=== PATIENT | female | born 1960 | race Caucasian/White ===

== ENCOUNTER 2018-04-20 15:18 | Inpatient (IN) ==
[2018-04-20] MEDS ORDERED: ONDANSETRON 4 MG/2 ML VIAL IV PRN (17:49)
[2018-04-20] MEDS ORDERED: ALBUTEROL/IPRATROPIUM 3 ML NEB RESP TX PRN (17:49)
[2018-04-20] MEDS ORDERED: ACETAMINOPHEN 325 MG TABLET PO PRN (17:49)
[2018-04-20] MEDS ORDERED: ALBUTEROL 2.5 MG/3 ML NEB RESP TX PRN (17:49)
[2018-04-20] MEDS ORDERED: methylPREDNISolone SOD SUC 125 MG/2 ML VIAL IV ONE (18:00)
[2018-04-20] MEDS ORDERED: LEVALBUTEROL 0.31 MG/3 ML NEB RESP TX ONE (18:16)
[2018-04-20] MEDS ORDERED: LORazepam 2 MG/1 ML VIAL IV ONE (18:26)
[2018-04-20] MEDS ORDERED: METOPROLOL TARTRATE 5 MG/5 ML VIAL IV ONE ×2 (18:26→18:30)
[2018-04-20] MEDS ORDERED: MORPHINE 4 MG/1 ML VIAL IV ONE (18:28)
[2018-04-20 18:29] LABS: Hematocrit 44.7 VOL% (35.7-47.0); Hemoglobin 14.5 GM/DL (12.0-16.0); Immature Granulocytes % 1.3 %; Immature Granulocytes Absolute 0.15 #; Lymphocytes # 0.8 10*3/uL (1.4-4.0); Lymphocytes % 6.4 % (21.3-54.2); Mean Corpuscular HGB Conc 32.4 GM/DL (32-36); Mean Corpuscular Hemoglobin 32 PG (27-34); Mean Corpuscular Volume 99.6 FL (87-102); Mean Platelet Volume 10.5 FL (9.6-12.0); Monocytes # 0.1 10*3/uL (0.11-0.8); Monocytes % 1.2 % (1.7-12.7); Neutrophils # 10.9 10*3/uL (1.4-7.4); Neutrophils % 91.1 % (38.7-73.9); Platelet Count 337 T/CUMM (130-400); Red Blood Count 4.49 MC/CUMM (3.8-5.5); Red Cell Distribution Width 13.2 % (9.3-17.3); White Blood Count 11.9 T/CUMM (4-12)
[2018-04-20 18:35] LABS: INR 0.9; PT Patient Result 9.9 SECS
[2018-04-20 18:35] LABS: ABG Base Excess -1.5 MMOL/L (-2.5-2.5); ABG HCO3 23.1 MMOL/L (20-26); ABG Oxygen Saturation 96.6 % (95-100); ABG PCO2 33.9 MM HG (35-48); ABG PH 7.422 (7.35-7.45); ABG PO2 85.6 MM HG (80-95); ABG TCO2 18.8 MMOL/L (23-27)
[2018-04-20] MEDS ORDERED: LORazepam 2 MG/1 ML VIAL IM PRN (18:48)
[2018-04-20] MEDS: SODIUM CHLORIDE 0.45% 1,000 ML IV SCH (18:50)
[2018-04-20 19:13] LABS: Alanine Aminotransferase 62 U/L (13-56); Albumin 4.4 G/DL (3.4-5.0); Alkaline Phosphatase 75 U/L (45-117); Aspartate Amino Transferase 45 U/L (0-37); Bilirubin,Total < 0.39 MG/DL (0.2-1.0); Blood Urea Nitrogen 19 MG/DL (7-18); Calcium 9.5 MG/DL (8.5-10.1); Glucose 131 MG/DL (74-106); Osmolality,Calculated 280.5 MOS/KG (273-304); Potassium 4.5 MMOL/L (3.5-5.1); Sodium 139 MMOL/L (136-145); Thyroid Stimulating Hormone 0.186 uIU/ml (0.358-3.74); Total Protein 8.8 G/DL (6.4-8.3)
[2018-04-20] MEDS ORDERED: LEVALBUTEROL 0.31 MG/3 ML NEB RESP TX PRN (19:45)
[2018-04-20 21:12] LABS: Apearance,Urine CLEAR (Clear); Bacteria,Urine Occasional /HPF (Few); Bilirubin,Urine Negative (Negative); Blood, Urine Negative (Negative); Glucose,Urine (UA) Negative (Negative); Ketones,Urine Negative (Negative); Mucus,Urine Occasional /LPF (Occasional); Nitrite,Urine Negative (Negative); Protein,Urine Negative; RBC,Urine <1 /HPF (0-4); Squamous Epithelial Cell,Urine Occasional /HPF (0-10); Urine Color Yellow (Yellow); Urine Specific Gravity 1.014 (1.001-1.035); Urine Urobilinogen < 2.0 EU/DL (0.2-1.0); WBC,Urine <1 /HPF (0-6)
[2018-04-20] MEDS: MORPHINE 4 MG/1 ML VIAL IV PRN (21:12)
[2018-04-20] MEDS: ENOXAPARIN 40 MG/0.4 ML SYRINGE SUBCUT SCH (21:12)
[2018-04-20] MEDS: TOPIRAMATE 25 MG TABLET PO SCH (21:12)
[2018-04-20] MEDS: MONTELUKAST 10 MG TABLET PO SCH (21:12)
[2018-04-20] MEDS: MEROPENEM 500 MG in SODIUM CHLORIDE 0.9% 100 ML IV SCH (21:48)
[2018-04-20] MEDS: LORazepam 2 MG/1 ML VIAL IV PRN (23:15)
[2018-04-21 00:29] LABS: Lymphocytes 6 % (20-55); Segmented Neutrophils 91 % (50-85)
[2018-04-21 00:30] LABS: Platelet Estimate Adequate; Total Cells Counted 100
[2018-04-21] MEDS: methylPREDNISolone SOD SUC 40 MG/1 ML VIAL IV SCH ×3 (01:44→17:59)
[2018-04-21] MEDS ORDERED: methylPREDNISolone SOD SUC 40 MG/1 ML VIAL IV SCH (02:00)
[2018-04-21 05:32] LABS: Basophils % 0.2 % (0.0-0.8); Hematocrit 42.9 VOL% (35.7-47.0); Hemoglobin 13.6 GM/DL (12.0-16.0); Immature Granulocytes % 0.7 %; Immature Granulocytes Absolute 0.08 #; Lymphocytes # 1.1 10*3/uL (1.4-4.0); Mean Corpuscular HGB Conc 31.7 GM/DL (32-36); Mean Corpuscular Hemoglobin 32 PG (27-34); Mean Corpuscular Volume 100.5 FL (87-102); Mean Platelet Volume 12.2 FL (9.6-12.0); Monocytes # 0.3 10*3/uL (0.11-0.8); Monocytes % 2.5 % (1.7-12.7); Neutrophils # 10.4 10*3/uL (1.4-7.4); Neutrophils % 87.6 % (38.7-73.9); Red Blood Count 4.27 MC/CUMM (3.8-5.5); Red Cell Distribution Width 13.3 % (9.3-17.3); White Blood Count 11.9 T/CUMM (4-12)
[2018-04-21 05:33] LABS: Platelet Count 119 T/CUMM (130-400)
[2018-04-21] MEDS ORDERED: LEVOTHYROXINE 200 MCG TABLET PO SCH (06:30)
[2018-04-21 06:33] LABS: Calcium 8.7 MG/DL (8.5-10.1); Osmolality,Calculated 268.2 MOS/KG (273-304); Potassium 4.8 MMOL/L (3.5-5.1); VLDL CHOLESTEROL 18.6 MG/DL
[2018-04-21 06:34] LABS: Risk Ratio 2.04
[2018-04-21 06:35] LABS: Lymphocytes 6 % (20-55); Segmented Neutrophils 94 % (50-85)
[2018-04-21 06:36] LABS: Total Cells Counted 100
[2018-04-21 06:37] LABS: Platelet Estimate Adequate
[2018-04-21] MEDS: TOPIRAMATE 25 MG TABLET PO SCH ×2 (08:06→21:08)
[2018-04-21] MEDS: MEROPENEM 500 MG in SODIUM CHLORIDE 0.9% 100 ML IV SCH ×2 (08:06→21:11)
[2018-04-21] MEDS: ASPIRIN EC 325 MG TABLET PO SCH (08:06)
[2018-04-21] MEDS: PANTOPRAZOLE 40 MG TABLET PO SCH (08:06)
[2018-04-21] MEDS: SODIUM CHLORIDE 0.45% 1,000 ML IV SCH (08:07)
[2018-04-21] MEDS: MORPHINE 4 MG/1 ML VIAL IV PRN ×4 (08:40→21:28)
[2018-04-21] MEDS ORDERED: LISINOPRIL/HCTZ 20-12.5 MG TABLET PO SCH (09:00)
[2018-04-21] MEDS ORDERED: VERAPAMIL 120 MG TABLET PO SCH (09:00)
[2018-04-21] MEDS ORDERED: Varenicline Tartrate [Chantix Starter Month Pack] PO SCH (09:50)
[2018-04-21] MEDS ORDERED: CYCLOBENZAPRINE 10 MG TABLET PO PRN (09:50)
[2018-04-21 10:25] LABS: Troponin I 0.123 NG/ML (0.00-0.045)
[2018-04-21 10:28] LABS: Free T4 (Free Thyroxine) 1.18 NG/DL (0.76-1.46)
[2018-04-21] MEDS: METOPROLOL SUCCINATE XL 25 MG TABLET PO SCH (11:38)
[2018-04-21] MEDS: LORazepam 2 MG/1 ML VIAL IV PRN ×3 (11:51→21:26)
[2018-04-21] MEDS: ALBUTEROL/IPRATROPIUM 3 ML NEB RESP TX SCH ×2 (12:55→20:24)
[2018-04-21] MEDS: DULoxetine 20 MG CAPSULE PO SCH (21:08)
[2018-04-21] MEDS: ROSUVASTATIN 10 MG TABLET PO SCH (21:08)
[2018-04-21] MEDS: ENOXAPARIN 40 MG/0.4 ML SYRINGE SUBCUT SCH (21:09)
[2018-04-21] MEDS: MONTELUKAST 10 MG TABLET PO SCH (21:09)
[2018-04-22] MEDS: ALBUTEROL/IPRATROPIUM 3 ML NEB RESP TX SCH ×4 (01:01→19:00)
[2018-04-22] MEDS: methylPREDNISolone SOD SUC 40 MG/1 ML VIAL IV SCH ×3 (02:26→18:12)
[2018-04-22] MEDS: LORazepam 2 MG/1 ML VIAL IV PRN (02:28)
[2018-04-22] MEDS: MORPHINE 4 MG/1 ML VIAL IV PRN ×5 (02:30→22:06)
[2018-04-22 04:33] LABS: Basophils % 0.1 % (0.0-0.8); Hematocrit 39.3 VOL% (35.7-47.0); Hemoglobin 12.6 GM/DL (12.0-16.0); Immature Granulocytes Absolute 0.14 #; Lymphocytes % 7.4 % (21.3-54.2); Mean Corpuscular HGB Conc 32.1 GM/DL (32-36); Mean Corpuscular Hemoglobin 32 PG (27-34); Mean Corpuscular Volume 100.8 FL (87-102); Mean Platelet Volume 11.3 FL (9.6-12.0); Monocytes # 0.7 10*3/uL (0.11-0.8); Monocytes % 4.7 % (1.7-12.7); Neutrophils % 86.8 % (38.7-73.9); Platelet Count 287 T/CUMM (130-400); Red Cell Distribution Width 13.3 % (9.3-17.3); White Blood Count 13.8 T/CUMM (4-12)
[2018-04-22 05:00] LABS: Calcium 8.6 MG/DL (8.5-10.1); Osmolality,Calculated 278.8 MOS/KG (273-304); Potassium 3.9 MMOL/L (3.5-5.1)
[2018-04-22] MEDS: LEVOTHYROXINE 150 MCG TABLET PO SCH (06:38)
[2018-04-22] MEDS: ASPIRIN EC 325 MG TABLET PO SCH (09:21)
[2018-04-22] MEDS: MEROPENEM 500 MG in SODIUM CHLORIDE 0.9% 100 ML IV SCH ×2 (09:21→20:57)
[2018-04-22] MEDS: TOPIRAMATE 25 MG TABLET PO SCH ×2 (09:21→20:54)
[2018-04-22] MEDS: PANTOPRAZOLE 40 MG TABLET PO SCH (09:21)
[2018-04-22] MEDS: METOPROLOL SUCCINATE XL 25 MG TABLET PO SCH (09:24)
[2018-04-22] MEDS: DULoxetine 20 MG CAPSULE PO SCH (20:53)
[2018-04-22] MEDS: ROSUVASTATIN 10 MG TABLET PO SCH (20:54)
[2018-04-22] MEDS: MONTELUKAST 10 MG TABLET PO SCH (20:54)
[2018-04-22] MEDS: ENOXAPARIN 40 MG/0.4 ML SYRINGE SUBCUT SCH (20:54)
[2018-04-23] MEDS: ALBUTEROL/IPRATROPIUM 3 ML NEB RESP TX SCH ×4 (01:47→19:54)
[2018-04-23] MEDS: methylPREDNISolone SOD SUC 40 MG/1 ML VIAL IV SCH ×3 (02:23→17:00)
[2018-04-23] MEDS: MORPHINE 4 MG/1 ML VIAL IV PRN ×5 (02:25→21:59)
[2018-04-23 05:11] LABS: Basophils % 0.1 % (0.0-0.8); Hematocrit 40.6 VOL% (35.7-47.0); Immature Granulocytes % 1.1 %; Immature Granulocytes Absolute 0.13 #; Lymphocytes # 0.7 10*3/uL (1.4-4.0); Lymphocytes % 5.5 % (21.3-54.2); Mean Corpuscular Hemoglobin 32 PG (27-34); Mean Platelet Volume 10.9 FL (9.6-12.0); Monocytes # 0.5 10*3/uL (0.11-0.8); Monocytes % 4.4 % (1.7-12.7); Neutrophils # 10.9 10*3/uL (1.4-7.4); Neutrophils % 88.9 % (38.7-73.9); Platelet Count 273 T/CUMM (130-400); Red Blood Count 4.06 MC/CUMM (3.8-5.5); White Blood Count 12.2 T/CUMM (4-12)
[2018-04-23 05:30] LABS: Calcium 8.5 MG/DL (8.5-10.1); Osmolality,Calculated 279.8 MOS/KG (273-304); Potassium 4.3 MMOL/L (3.5-5.1)
[2018-04-23] MEDS: LEVOTHYROXINE 150 MCG TABLET PO SCH (05:49)
[2018-04-23] MEDS: ASPIRIN EC 81 MG TABLET PO SCH (08:09)
[2018-04-23] MEDS: METOPROLOL SUCCINATE XL 25 MG TABLET PO SCH (08:09)
[2018-04-23] MEDS: TOPIRAMATE 25 MG TABLET PO SCH ×2 (08:10→20:20)
[2018-04-23] MEDS: PANTOPRAZOLE 40 MG TABLET PO SCH (08:10)
[2018-04-23] MEDS: MEROPENEM 500 MG in SODIUM CHLORIDE 0.9% 100 ML IV SCH ×2 (08:14→20:22)
[2018-04-23] MEDS ORDERED: ERGOCALCIFEROL 50,000 UNIT CAPSULE PO SCH (09:00)
[2018-04-23] MEDS: MONTELUKAST 10 MG TABLET PO SCH (20:20)
[2018-04-23] MEDS: ROSUVASTATIN 10 MG TABLET PO SCH (20:20)
[2018-04-23] MEDS: ENOXAPARIN 40 MG/0.4 ML SYRINGE SUBCUT SCH (20:21)
[2018-04-23] MEDS: DULoxetine 20 MG CAPSULE PO SCH (20:21)
[2018-04-24] MEDS: ALBUTEROL/IPRATROPIUM 3 ML NEB RESP TX SCH ×3 (01:15→12:12)
[2018-04-24] MEDS: methylPREDNISolone SOD SUC 40 MG/1 ML VIAL IV SCH ×2 (02:04→09:10)
[2018-04-24] MEDS: MORPHINE 4 MG/1 ML VIAL IV PRN ×3 (02:06→12:15)
[2018-04-24] MEDS: LEVOTHYROXINE 150 MCG TABLET PO SCH (05:45)
[2018-04-24] MEDS: ASPIRIN EC 81 MG TABLET PO SCH (08:04)
[2018-04-24] MEDS: PANTOPRAZOLE 40 MG TABLET PO SCH (08:04)
[2018-04-24] MEDS: METOPROLOL SUCCINATE XL 25 MG TABLET PO SCH (08:04)
[2018-04-24] MEDS: TOPIRAMATE 25 MG TABLET PO SCH (08:04)
[2018-04-24] MEDS: MEROPENEM 500 MG in SODIUM CHLORIDE 0.9% 100 ML IV SCH (08:05)
[2018-04-24 11:35] VITALS: BP 137/81
[2018-04-28] MEDS ORDERED: Alendronate [Fosamax] 70 MG PO SCH (09:00)
== END 2018-04-24 13:43 | disposition home health service (06) | DRG 192 ==
LOC: SUATTDRO 16:51 → N.CC 16:51 → N.4E 04-21 17:44
PROVIDERS: ADMIT Internal Medicine; ATTEND Internal Medicine

== ENCOUNTER 2018-04-27 15:50 | Observation (INO) ==
[2018-04-27] MEDS ORDERED: ASPIRIN 325 MG TABLET PO STA (16:54)
[2018-04-27] MEDS ORDERED: ALUM/MAG/SIMETH/LIDO VISC 1:1 30 ML BOTTLE PO STA (16:54)
[2018-04-27] MEDS ORDERED: ALBUTEROL/IPRATROPIUM 3 ML NEB RESP TX STA (16:54)
[2018-04-27] MEDS ORDERED: methylPREDNISolone SOD SUC 125 MG/2 ML VIAL IV STA (16:54)
[2018-04-27] MEDS ORDERED: ONDANSETRON 4 MG/2 ML VIAL IV STA (16:54)
[2018-04-27] MEDS ORDERED: NITROGLYCERIN 2% OINT 1 INCH/GM PACK TOP STA (16:54)
[2018-04-27] MEDS ORDERED: MORPHINE 4 MG/1 ML VIAL IV STA (16:54)
[2018-04-27 17:09] LABS: Basophils % 0.2 % (0.0-0.8); Eosinophils # 0.2 10*3/uL (0.0-0.87); Eosinophils % 1.5 % (0.00-10.9); Hematocrit 45.6 VOL% (35.7-47.0); Hemoglobin 14.7 GM/DL (12.0-16.0); Immature Granulocytes % 1.1 %; Immature Granulocytes Absolute 0.14 #; Lymphocytes % 32.6 % (21.3-54.2); Mean Corpuscular HGB Conc 32.2 GM/DL (32-36); Mean Corpuscular Hemoglobin 32 PG (27-34); Mean Platelet Volume 10.7 FL (9.6-12.0); Monocytes # 1.1 10*3/uL (0.11-0.8); Neutrophils # 6.9 10*3/uL (1.4-7.4); Neutrophils % 55.6 % (38.7-73.9); Platelet Count 295 T/CUMM (130-400); Red Blood Count 4.56 MC/CUMM (3.8-5.5); Red Cell Distribution Width 12.6 % (9.3-17.3); White Blood Count 12.3 T/CUMM (4-12)
[2018-04-27 17:20] LABS: PT Patient Result 10.7 SECS
[2018-04-27 17:28] LABS: Albumin 4.4 G/DL (3.4-5.0); Bilirubin,Total 0.4 MG/DL (0.2-1.0); Calcium 8.9 MG/DL (8.5-10.1); Osmolality,Calculated 276.8 MOS/KG (273-304); Potassium 3.9 MMOL/L (3.5-5.1); Total Protein 8.2 G/DL (6.4-8.3)
[2018-04-27 17:31] LABS: Apearance,Urine CLEAR (Clear); Bacteria,Urine Occasional /HPF (Few); Bilirubin,Urine Negative (Negative); Blood, Urine Negative (Negative); Glucose,Urine (UA) Negative (Negative); Ketones,Urine Negative (Negative); Mucus,Urine Occasional /LPF (Occasional); Nitrite,Urine Negative (Negative); Protein,Urine Negative; RBC,Urine 3 /HPF (0-4); Squamous Epithelial Cell,Urine Occasional /HPF (0-10); Urine Color Yellow (Yellow); Urine Specific Gravity 1.025 (1.001-1.035); WBC,Urine 11 /HPF (0-6)
[2018-04-27] MEDS ORDERED: LEVOFLOXACIN 500 MG TABLET PO STA (17:45)
[2018-04-27] MEDS ORDERED: CYCLOBENZAPRINE 10 MG TABLET PO PRN (18:20)
[2018-04-27] MEDS ORDERED: ALBUTEROL/IPRATROPIUM 3 ML NEB RESP TX SCH (19:00)
[2018-04-27] MEDS: ALBUTEROL/IPRATROPIUM 3 ML NEB RESP TX SCH (19:04)
[2018-04-27] MEDS: MORPHINE 4 MG/1 ML VIAL IV PRN (20:23)
[2018-04-27] MEDS: TOPIRAMATE 25 MG TABLET PO SCH (20:23)
[2018-04-27] MEDS: ONDANSETRON 4 MG/2 ML VIAL IV PRN (20:24)
[2018-04-27] MEDS ORDERED: ROSUVASTATIN 10 MG TABLET PO SCH (21:00)
[2018-04-27] MEDS ORDERED: MONTELUKAST 10 MG TABLET PO SCH (21:00)
[2018-04-27] MEDS ORDERED: ENOXAPARIN 40 MG/0.4 ML SYRINGE SUBCUT SCH (21:00)
[2018-04-27] MEDS ORDERED: DULoxetine 20 MG CAPSULE PO SCH (21:00)
[2018-04-27] MEDS ORDERED: CEFUROXIME 500 MG TABLET PO SCH (21:00)
[2018-04-28] MEDS: MORPHINE 4 MG/1 ML VIAL IV PRN ×3 (00:35→14:20)
[2018-04-28] MEDS: NITROGLYCERIN 2% OINT 1 INCH/GM PACK TOP SCH ×3 (00:36→11:52)
[2018-04-28] MEDS: ONDANSETRON 4 MG/2 ML VIAL IV PRN (00:36)
[2018-04-28 06:03] LABS: Basophils % 0.1 % (0.0-0.8); Eosinophils % 0.1 % (0.00-10.9); Hematocrit 40.1 VOL% (35.7-47.0); Hemoglobin 13.2 GM/DL (12.0-16.0); Immature Granulocytes % 0.7 %; Immature Granulocytes Absolute 0.11 #; Lymphocytes # 1.2 10*3/uL (1.4-4.0); Lymphocytes % 7.2 % (21.3-54.2); Mean Corpuscular HGB Conc 32.9 GM/DL (32-36); Mean Corpuscular Hemoglobin 33 PG (27-34); Mean Corpuscular Volume 99.3 FL (87-102); Mean Platelet Volume 10.9 FL (9.6-12.0); Monocytes # 0.6 10*3/uL (0.11-0.8); Monocytes % 3.4 % (1.7-12.7); Neutrophils # 14.5 10*3/uL (1.4-7.4); Neutrophils % 88.5 % (38.7-73.9); Platelet Count 263 T/CUMM (130-400); Red Blood Count 4.04 MC/CUMM (3.8-5.5); Red Cell Distribution Width 12.6 % (9.3-17.3); White Blood Count 16.4 T/CUMM (4-12)
[2018-04-28 06:21] LABS: Calcium 8.6 MG/DL (8.5-10.1); Osmolality,Calculated 277.7 MOS/KG (273-304); Potassium 4.2 MMOL/L (3.5-5.1); Risk Ratio 1.58
[2018-04-28] MEDS ORDERED: LEVOTHYROXINE 150 MCG TABLET PO SCH (06:30)
[2018-04-28] MEDS: ALBUTEROL/IPRATROPIUM 3 ML NEB RESP TX SCH ×3 (07:23→15:00)
[2018-04-28] MEDS ORDERED: predniSONE 20 MG TABLET PO SCH (09:00)
[2018-04-28] MEDS ORDERED: LISINOPRIL/HCTZ 20-12.5 MG TABLET PO SCH (09:00)
[2018-04-28] MEDS ORDERED: NON-FORMULARY MEDICATION (Varenicline Tartrate [Chantix Starter Month Pack] 1 EACH) PO SCH (09:00)
[2018-04-28] MEDS ORDERED: NICOTINE 21 MG/24 HR PATCH TRANSDERM SCH (09:00)
[2018-04-28] MEDS ORDERED: LEVOFLOXACIN 250 MG TABLET PO SCH (09:00)
[2018-04-28] MEDS ORDERED: METOPROLOL SUCCINATE XL 25 MG TABLET PO SCH (09:00)
[2018-04-28] MEDS ORDERED: POTASSIUM CHLORIDE 8 MEQ CAPSULE PO SCH (09:00)
[2018-04-28] MEDS: TOPIRAMATE 25 MG TABLET PO SCH (09:23)
[2018-04-28] MEDS ORDERED: cefTRIAXone 1,000 MG in SYRINGE 1 EACH IV SCH (11:00)
[2018-04-28 12:23] VITALS: BP 100/62
[2018-04-30] MEDS ORDERED: NON-FORMULARY MEDICATION (Alendronate [Fosamax] 70 MG) PO SCH (18:20)
[2018-05-04] MEDS ORDERED: ERGOCALCIFEROL 50,000 UNIT CAPSULE PO SCH (09:00)
== END 2018-04-28 16:32 | disposition home or self-care (01) ==
LOC: N.ED 15:50 → N.EDINP 15:50 → N.5E 18:51
PROVIDERS: ADMIT Internal Medicine; ATTEND Internal Medicine